=== PATIENT | male | born 1995 | race Caucasian/White ===

== ENCOUNTER 2017-10-25 19:04 | Emergency (ER) | payer OTHER ==
[2017-10-25 19:12] VITALS: BMI 31.4
[2017-10-25] MEDS ORDERED: IBUPROFEN 600 MG TABLET (FP) PO ONE ×2 (19:22→19:23)
--- NOTE | 2017-10-25 19:23 | PDOC ---
History of Present Illness - General History Source: Patient Exam Limitations: No Limitations - History of Present Illness Initial Comments: 10/25/17 19:45 The patient is a 22 year old male with a past medical history of ADD who presents to the ED with complaints of headache and fever since earlier today. The patient reports he gradually developed a non radiating frontal headache around noon earlier today. He describes the headache as a throbbing like sensation and a 2/10 in severity. Patient also notes he developed chills and 5a fever of 102F an hour and a half ago, now resolved. He also reports a slight dry cough for the past 3 days. Upon arrival to the ED, patient only complains of a mild headache. Patient tates he received his flu shot this year. Patient states he recently went [place] in [place]. Denies sick contacts. Denies recent travel. Denies neck pain. Denies rashes or bug bites. Denies chest pain or shortness of breath. Denies rhinorrhea or sore throat. Denies abdominal pain, nausea, vomiting, or diarrhea. Denies dysuria or changes in urinary output. Denies photophobia or phonophobia. Denies any other symptoms. PAST MEDICAL HISTORY: ADD PAST SURGICAL HISTORY: no significant history FAMILY HISTORY: no pertinent history SOCIAL HISTORY: Pt lives with family, is a college student, commuting from home. MEDICATIONS: reviewed ALLERGIES: As per nursing notes General: + fever, chills. No weakness, no weight loss HEENT: No change in vision. No sore throat,. No ear pain CardioVascular: No chest pain or shortness of breath Respiratory: + cough. No wheezing. Gastrointestinal: no nausea, vomiting, diarrhea or constipation, No rectal bleeding Genitourinary: No dysuria, hematuria, or frequency Musculoskeletal: No joint or muscle pain or swelling Neurologic: + headache. No vertigo, dizziness or loss of consciousness Psychiatric: nor depression Skin: No rashes or easy bruising Endocrine: no increased thirst or abnormal weight change Allergic: no skin or latex allergy All other systems reviewed and normal General: Well-nourished well-developed individual, no acute distress HEENT: Throat:+ there is mild erythema of the posterior oropharynx, tonsils are enlarged with no exudates Neck: + there is small bilateral submandibular lymphadenopathy. Supple, no meningeal signs. Neck has full Range of Motion without any discomfort. Eyes::Pupils equal reactive and round, extraocular motion intact Chest: Nontender to palpation Cardiac: S1-S2 normal, regular rate and rhythm, no murmurs rubs or gallops Respiratory: Lungs clear to auscultation bilateral Abdomen: Soft, nondistended, normal bowel sounds, nontender to palpation diffusely Extremities: Warm, dry, no cyanosis, clubbing, or edema Skin: No rashes Neuro: Alert and oriented x3, nonfocal exam, grossly intact, normal gait Psych: Normal mood and affect <Alexandra Fleming - Last Filed: 10/25/17 19:45> - General History Source: Patient Exam Limitations: No Limitations - History of Present Illness Initial Comments: 10/25/17 22:23 A portion of this note was documented by scribe services under my direction. I have reviewed the details of the note, within reason, and agree with the documentation. The case summary and management plan written by me. Assessment plan: This is a 22-year-old male who comes in complaining of a fever and headache. On my exam patient had no meningeal signs. Patient's headache resolved while he was here in the emergency room and his temperature was normal at time of his discharge. Patient received Motrin. Patient had a workup sent for tickborne illnesses that are still dull pending and including EBV. Patient will follow up with his primary care doctor for the results of the rest of his workup. Patient was given copies of the blood work that was done here Of note patient had some mild elevation of his LFTs however as per patient he has chronic LFT mild elevation. <Hayden Bajwa I - Last Filed: 10/25/17 22:25> - General Chief Complaint: Cold Symptoms Stated Complaint: FEVER,HEADACHE, Time Seen by Provider: 10/25/17 19:22 Past History <Alexandra Fleming - Last Filed: 10/25/17 19:45> - Past Medical History COPD: No Psychiatric Problems: Yes (ADD) - Immunization History Immunization Up to Date: Yes - Suicide/Smoking/Psychosocial Hx Smoking Status: No Smoking History: Never smoked Number of Cigarettes Smoked Daily: 0 Hx Alcohol Use: No Drug/Substance Use Hx: No Hx Substance Use Treatment: No <Hayden Bajwa I - Last Filed: 10/25/17 22:25> - Past Medical History Allergies/Adverse Reactions: Allergies Allergy/AdvReac Type Severity Reaction Status Date / Time No Known Allergies Allergy Verified 11/03/11 21:19 Home Medications: Ambulatory Orders Lisdexamfetamine Dimesylate [Vyvanse] 30 mg PO DAILY 10/25/17 *Physical Exam - Vital Signs Last Vital Signs Temp Pulse Resp BP Pulse Ox 102.7 F H 118 H 16 112/58 100 10/25/17 19:07 10/25/17 19:07 10/25/17 19:07 10/25/17 19:07 10/25/17 19:07 <Alexandra Fleming - Last Filed: 10/25/17 19:45> - Vital Signs Last Vital Signs Temp Pulse Resp BP Pulse Ox 102.7 F H 118 H 16 112/58 100 10/25/17 19:07 10/25/17 19:07 10/25/17 19:07 10/25/17 19:07 10/25/17 19:07 <Hayden Bajwa I - Last Filed: 10/25/17 22:25> ED Treatment Course - Medications Given in the ED: ED Medications Discontinued Medications Generic Name Dose Route Start Last Admin Trade Name Freq PRN Reason Stop Dose Admin Ibuprofen 600 mg 10/25/17 19:23 10/25/17 19:23 Motrin - PO 10/25/17 19:24 600 mg ONCE ONE Administration <Alexandra Fleming - Last Filed: 10/25/17 19:45> - LABORATORY CBC & Chemistry Diagram: 10/25/17 20:00 10/25/17 20:00 <Hayden Bajwa I - Last Filed: 10/25/17 22:25> *DC/Admit/Observation/Transfer - Attestations Scribe Attestion: 10/25/17 19:45 Documentation prepared by Alexandra Fleming, acting as medical records receptionist for Hayden Bajwa MD <Alexandra Fleming - Last Filed: 10/25/17 19:45> <Hayden Bajwa I - Last Filed: 10/25/17 22:25> Diagnosis at time of Disposition: Fever Qualifiers: Fever type: unspecified Qualified Code(s): R50.9 - Fever, unspecified - Discharge Dispostion Disposition: HOME Condition at time of disposition: Stable - Patient Instructions Additional Instructions: For the fever take ibuprofen 3 tablets 3 times a day with food don't take on an empty stomach, Make sure you follow-up with your primary care doctor and have him follow up the results of your tests and we were done here including your Lyme titer, ehrlichosis titer, babesiosis titer, and mono/EBV test. Return to the emergency department immediately with ANY new, persistent or worsening symptoms. Continue any medications as previously prescribed by your physician. You should follow up with your primary doctor as soon as possible regarding today's emergency department visit. . Please make sure your doctor reviews the results of your emergency evaluation. Thank you for coming to the Emergency Department today for your care. It was a pleasure to see you today. Please note that your evaluation is INCOMPLETE until you follow-up with your doctor.
[2017-10-25 20:27] LABS: BASO % 2.2 % (0-2.0); EOS % 0.1 % (0-4.5); HEMATOCRIT 45.2 % (35.4-49); HEMOGLOBIN 14.9 GM/dl (11.7-16.9); LYMPH % 9.6 % (8-40); MCH 29.1 pg (25.7-33.7); MCHC 32.9 g/dl (32.0-35.9); MEAN CELL VOLUME 88.3 fl (80-96); MONO % 8.7 % (3.8-10.2); NEUT % 79.4 % (42.8-82.8); PLATELET COUNT 267 K/MM3 (134-434); RBC 5.11 M/mm3 (4.00-5.60); RDW 12.3 % (11.9-15.9); WHITE BLOOD COUNT 13.5 K/mm3 (4.0-10.8)
[2017-10-25 20:32] VITALS: BP 114/53; PULSE 101; TEMP 99.3
[2017-10-25 20:46] LABS: ALBUMIN 4.3 g/dl (3.5-5.0); ALK PHOS 63 U/L (32-92); ANION GAP 10 MMOL/L (8-16); BILIRUBIN,TOTAL 1.6 mg/dl (0.2-1.0); BLOOD UREA NITROGEN 11 mg/dl (7-18); CALCIUM 9.3 mg/dl (8.4-10.2); CHLORIDE 102 mmol/L (98-107); CO2 26 mmol/L (22-28); CREATININE 0.9 mg/dl (0.6-1.3); GLUCOSE,RANDOM 84 mg/dl (74-106); POTASSIUM 3.8 mmol/L (3.5-5.1); SGOT/AST 57 U/L (10-42); SGPT/ALT 106 U/L (10-40); SODIUM 138 mmol/L (136-145); TOT PROT 7.4 g/dl (6.4-8.3)
[2017-10-28 16:23] LABS: E. chaff IgG Negative (Neg:<1:64)
[2017-10-29 00:11] LABS: BABESIA MICROTI ANTIBODY IGG <1:10 (Neg:<1:10); BABESIA MICROTI ANTIBODY IGM <1:10 (Neg:<1:10)
== END 2017-10-25 21:12 | disposition home or self-care (01) ==
LOC: FER 19:04
DX: R50.9 Fever, unspecified (principal); F98.8 Other specified behavioral and emotional disorders with onset usually occurring in childhood and adolescence
CPT/HCPCS: 36415; 80053; 85025; 86308; 86618; 86664; 86666; 86753; 87040; 87070; 87077; 87430; 99282-25